=== PATIENT | female | born 1995 | race Caucasian/White ===

== ENCOUNTER 2018-07-31 22:52 | Outpatient (CLI) | payer OTHER ==
[2018-08-01 01:11] LABS: APPEARANCE, URINE HAZY (CLEAR); BACTERIA, URINE AUTO 1+ (NEGATIVE); BILIRUBIN, URINE AUTO NEGATIVE (NEGATIVE); BLOOD, URINE BLOOD NEGATIVE (NEGATIVE); COLOR, URINE YELLOW (YELLOW); GLUCOSE, URINE (UA) AUTO NEGATIVE (NEGATIVE); KETONE, URINE AUTO TRACE mg/dL (NEGATIVE); LEUKOCYTE ESTERASE, URINE AUTO 3+ (NEGATIVE); MUCUS, URINE SMALL (NEGATIVE); NITRITE, URINE AUTO NEGATIVE (NEGATIVE); PROTEIN, URINE AUTO NEGATIVE (NEGATIVE); RBC, URINE AUTO 2 /HPF (0-3); SPECIFIC GRAVITY URINE AUTO 1.004 (1.002-1.035); SQUAMOUS EPITHELIAL CELL UR AU 9 /HPF (0-6); TRANSITIONAL EPITHELIAL AUTO <1 /HPF; UROBILINOGEN, URINE AUTO 0.2 mg/dL (0.0-2.0); WBC, URINE AUTO 4 /HPF (0-3)
== END 2018-08-01 00:15 | disposition home or self-care (01) ==
LOC: M LDO 22:52
DX: Z04.3 Encounter for examination and observation following other accident (principal); V89.2XXD Person injured in unspecified motor-vehicle accident, traffic, subsequent encounter; O47.03 False labor before 37 completed weeks of gestation, third trimester; Z3A.32 32 weeks gestation of pregnancy
CPT/HCPCS: 59025

== ENCOUNTER 2018-09-21 03:02 | Inpatient (IN) | payer OTHER ==
[2018-09-21] MEDS: LR 1,000 ML IV ×2 (07:15→16:08)
[2018-09-21 07:29] LABS: HEMATOCRIT 34.3 % (36.0-47.0); HEMOGLOBIN 11.5 g/dl (12.0-15.5); MEAN CORPUSCULAR HEMOGLOBIN 30.7 pg (27.0-33.0); MEAN CORPUSCULAR HGB CONC 33.5 g/dl (32.0-36.5); MEAN CORPUSCULAR VOLUME 91.5 fl (80.0-96.0); PLATELET COUNT, AUTOMATED 274 10^3/uL (150-450); RED BLOOD COUNT 3.75 10^6/uL (4.00-5.40); RED CELL DISTRIBUTION WIDTH 13.5 % (11.5-14.5); WHITE BLOOD COUNT 11.8 10^3/uL (4.0-10.0)
[2018-09-21] MEDS: OXYTOCIN DRIP 30 UNITS in APPROPRIATE DILUENT 1 EA IV (08:33)
[2018-09-21] MEDS: LACTATED RINGER'S 1000 ML IV (14:36)
[2018-09-21] MEDS ORDERED: FENTANYL 2MCG/ML ROPIVACAINE 0.2% IN 0.9% NACL 200ML IVBAG As Ordered (15:01)
[2018-09-21] MEDS ORDERED: ePHEDrine SULFATE 25 MG/5 ML(5MG/ML) SYRINGE IV (16:30)
[2018-09-21] MEDS ORDERED: EPIDURAL COMMENT XX (16:30)
[2018-09-21] MEDS ORDERED: NALOXONE INJ 0.4 MG/1 ML VIAL (J2310) IV ×3 (16:30→23:30)
[2018-09-21] MEDS ORDERED: EPIDURAL/PCA KEYS XX (16:30)
[2018-09-21] MEDS ORDERED: LACTATED RINGER'S 1000 ML IV (16:30)
[2018-09-21] MEDS ORDERED: diphenhydrAMINE INJ 50MG/ML VIAL (J1200) IV (16:30)
[2018-09-21] MEDS ORDERED: ONDANSETRON 4MG/2ML VIAL (J2405) IV ×2 (16:30→23:30)
[2018-09-21] MEDS: FENTANYL/ROPIVACAINE/NACL BAG 200 ML EPIDURAL (16:30)
[2018-09-21] MEDS ORDERED: REFRIGERATOR IV KEYS XX (16:30)
[2018-09-21] MEDS: ACETAMINOPHEN 500 MG TAB PO (19:25)
[2018-09-21] MEDS: AMPICILLIN SOD/SULBACTAM SOD 3 GM in D5W MINI-BAG PLUS 100 ML IV (20:03)
[2018-09-21] MEDS ORDERED: MORPHINE PRES-FREE INJ 10 MG/10 ML VIAL (J2274) As Ordered (22:28)
[2018-09-21] MEDS ORDERED: OXYTOCIN INJ 10 UNITS/ML VIAL (J2590) As Ordered ×3 (22:30)
[2018-09-21] MEDS ORDERED: LIDOCAINE 2% W/EPIN INJ 20ML **PRES FREE As Ordered (22:34)
[2018-09-21] MEDS: BICITRA 30ML SOLN UDC PO (22:37)
[2018-09-21] MEDS: AZITHROMYCIN INJ 500 MG, VIAL MATE ADAPTER 1 EACH in D5W 250 ML IV (23:00)
[2018-09-21] MEDS ORDERED: METOCLOPRAMIDE INJ 10MG/2ML VIAL (J2765) IV (23:30)
[2018-09-21] MEDS ORDERED: NALBUPHINE HCL 10 MG/ML AMP (J2300) IV (23:30)
[2018-09-21 23:36] LABS: CORD GAS ABE A -6.7; CORD GAS HCO3 A 21.2 MEQ/L; CORD GAS O2 SAT A 31.9 %; CORD GAS PCO2 A 51.2 mmHg; CORD GAS PH A 7.235 UNITS; CORD GAS PO2 A 16.1 mmHg; CORD GAS SBC A 17.6 MEQ/L; CORD GAS TCO2 A 22.8 MEQ/L
[2018-09-21 23:41] LABS: CORD GAS ABE V -6.6; CORD GAS HCO3 V 20.5 MEQ/L; CORD GAS O2 SAT V 35.6 %; CORD GAS PCO2 V 46.1 mmHg; CORD GAS PH V 7.265 UNITS; CORD GAS PO2 V 16.5 mmHg; CORD GAS SBC V 17.8 MEQ/L; CORD GAS TCO2 V 21.9 MEQ/L
[2018-09-21] MEDS ORDERED: ONDANSETRON 4MG/2ML VIAL (J2405) As Ordered (23:43)
[2018-09-21] MEDS ORDERED: dexameTHASONE 4 MG/ML 1ML VIAL (J1100) As Ordered (23:43)
[2018-09-21] MEDS ORDERED: KETOROLAC 60 MG/2 ML VIAL (J1885) As Ordered (23:43)
[2018-09-22] MEDS: miSOPROStol 200 MCG TAB (S0191) PR (00:30)
[2018-09-22] MEDS: LR 1,000 ML IV ×2 (00:47→02:40)
[2018-09-22] MEDS ORDERED: RHOGAM 300 MCG (1500 IU) INJ (J2790) IM (01:00)
[2018-09-22] MEDS ORDERED: MEASLES,MUMPS,RUBELLA VACCINE INJ (MMR-II) (90707) SC (01:00)
[2018-09-22] MEDS ORDERED: fentaNYL 100 MCG/2 ML INJECTION (J3010) IV (01:00)
[2018-09-22] MEDS ORDERED: NALBUPHINE HCL 10 MG/ML AMP (J2300) IV (01:00)
[2018-09-22] MEDS: METHYLERGONOVINE MALEATE 0.2 MG/ML VIAL (J2210) IM (01:00)
[2018-09-22] MEDS ORDERED: MEPERIDINE INJ 25 MG/ML VIAL (J2175) IV (01:00)
[2018-09-22] MEDS ORDERED: ONDANSETRON 4MG/2ML VIAL (J2405) IV ×2 (01:00)
[2018-09-22] MEDS ORDERED: PERCOCET 5MG/325MG TAB PO ×2 (01:00)
[2018-09-22] MEDS ORDERED: HYDROMORPHONE HCL 0.5 MG/ 0.5 ML SYRINGE (J1170 PER 1) IV (01:00)
[2018-09-22] MEDS ORDERED: fentaNYL 100 MCG/2 ML INJECTION (J3010) As Ordered (01:02)
[2018-09-22] MEDS: PERCOCET 5MG/325MG TAB PO (02:50)
[2018-09-22] MEDS: AMPICILLIN SOD/SULBACTAM SOD 3 GM in D5W MINI-BAG PLUS 100 ML IV ×4 (03:00→21:53)
[2018-09-22] MEDS: CLINDAMYCIN 900 MG in APPROPRIATE DILUENT 1 EA IV (04:12)
[2018-09-22] MEDS: KETOROLAC 30 MG/ML VIAL (J1885) IV ×3 (06:15→19:04)
[2018-09-22] MEDS: DOCUSATE SODIUM 100 MG CAP PO ×2 (08:47→21:53)
[2018-09-22] MEDS: PRENATAL VITAMINS CHEWABLE TABLET PO (08:47)
[2018-09-23] MEDS: AMPICILLIN SOD/SULBACTAM SOD 3 GM in D5W MINI-BAG PLUS 100 ML IV (03:00)
[2018-09-23] MEDS: IBUPROFEN 800 MG TAB PO ×3 (03:00→18:01)
[2018-09-23 07:20] LABS: HEMATOCRIT 26.1 % (36.0-47.0); MEAN CORPUSCULAR HEMOGLOBIN 30.9 pg (27.0-33.0); MEAN CORPUSCULAR HGB CONC 33.3 g/dl (32.0-36.5); MEAN CORPUSCULAR VOLUME 92.6 fl (80.0-96.0); PLATELET COUNT, AUTOMATED 218 10^3/uL (150-450); RED BLOOD COUNT 2.82 10^6/uL (4.00-5.40); RED CELL DISTRIBUTION WIDTH 14.1 % (11.5-14.5); WHITE BLOOD COUNT 20.1 10^3/uL (4.0-10.0)
[2018-09-23 07:25] LABS: HEMOGLOBIN 8.7 g/dl (12.0-15.5)
[2018-09-23] MEDS: DOCUSATE SODIUM 100 MG CAP PO ×2 (08:32→22:04)
[2018-09-23] MEDS: PRENATAL VITAMINS CHEWABLE TABLET PO (08:32)
[2018-09-23] MEDS: PERCOCET 5MG/325MG TAB PO ×2 (12:51→19:28)
[2018-09-24] MEDS: IBUPROFEN 800 MG TAB PO ×2 (01:45→10:11)
[2018-09-24] MEDS: PERCOCET 5MG/325MG TAB PO ×2 (05:54→11:05)
[2018-09-24] MEDS: PRENATAL VITAMINS CHEWABLE TABLET PO (08:42)
[2018-09-24] MEDS: DOCUSATE SODIUM 100 MG CAP PO (08:42)
== END 2018-09-24 11:10 | disposition home or self-care (01) | DRG 771 ==
LOC: M LDO 03:02 → M OBS 09-22 02:39 → M LDI 04:55
PROVIDERS: Obstetrics & Gynecology
PROC: 10D00Z1 Extraction of Products of Conception, Low, Open Approach (ICD-10-PCS; principal; 2018-09-21 22:40)
DX: O76 Abnormality in fetal heart rate and rhythm complicating labor and delivery (principal); O41.1230 Chorioamnionitis, third trimester, not applicable or unspecified; Z37.0 Single live birth; Z3A.39 39 weeks gestation of pregnancy; O42.02 Full-term premature rupture of membranes, onset of labor within 24 hours of rupture

== ENCOUNTER 2018-12-02 17:09 | Emergency (ER) | payer OTHER ==
[~2018-12-02] VITALS: Ht 152.4 cm; Wt 67.4 kg
[~2018-12-02 17:09] MED LIST: IBUP-1114 PO; OXYC1TAB23 PO; PRENTAB9 PO
[2018-12-02] MEDS ORDERED: NS 1,000 ML IV ONE (17:45)
--- NOTE | 2018-12-02 18:02 | REP ---
Clinical: Syncope . Comparison: None . Findings: The ventricles, sulci, and cisterns are normal in position and appearance. [place]-white differentiation is maintained. No acute intracranial hemorrhage, mass/mass effect, pathology or trauma/injury. No evidence for acute infarction. No extra-axial fluid collection. Calvarium is intact. Paranasal sinuses and mastoid air cells are clear. Impression: Normal noncontrast head CT. No evidence for acute intracranial pathology or trauma/injury. Electronically Signed by Jose A Wells MD 12/02/2018 05:54 P
[2018-12-02 18:25] LABS: BASO % 0.2 % (0.0-1.0); EOS # 0.2 10^3/uL (0.0-0.50); HEMATOCRIT 39.9 % (36.0-47.0); HEMOGLOBIN 12.7 g/dl (12.0-15.5); LYMPH # 1.4 10^3/uL (1.5-6.5); LYMPH % 8.8 % (24.0-44.0); MEAN CORPUSCULAR HEMOGLOBIN 28.7 pg (27.0-33.0); MEAN CORPUSCULAR HGB CONC 31.8 g/dl (32.0-36.5); MEAN CORPUSCULAR VOLUME 90.3 fl (80.0-96.0); MONO # 1.1 10^3/uL (0.0-0.8); MONO % 6.9 % (0.0-5.0); NEUTROPHILS # 12.9 10^3/uL (1.8-7.7); NEUTROPHILS % 82.5 % (36.0-66.0); PLATELET COUNT, AUTOMATED 294 10^3/uL (150-450); RED BLOOD COUNT 4.42 10^6/uL (4.00-5.40); WHITE BLOOD COUNT 15.6 10^3/uL (4.0-10.0)
[2018-12-02 18:43] LABS: INR 1.21; PROTHROMBIN TIME 15.5 SECONDS (12.1-14.4)
[2018-12-02 18:59] LABS: BLOOD UREA NITROGEN 11 MG/DL (7-18); CARBON DIOXIDE LEVEL 27 MEQ/L (21-32); CHLORIDE LEVEL 104 MEQ/L (98-107); CK-MB VALUE MASS < 1.0 NG/ML (<3.6); CPK CREATINE PHOSPHOKINASE 72 U/L (26-192); CREATININE FOR GFR 0.84 MG/DL (0.55-1.30); GLOMERULAR FILTRATION RATE > 60.0 (>60); GLUCOSE, FASTING 88 MG/DL (70-100); MB/CK RELATIVE INDEX 1.39 (< OR =4); POTASSIUM SERUM 3.7 MEQ/L (3.5-5.1); SODIUM LEVEL 139 MEQ/L (136-145); TROPONIN I < 0.02 NG/ML (< 0.10)
[2018-12-02] MEDS ORDERED: PENI500T PO (19:09)
[2018-12-02] MEDS ORDERED: PENICILLIN V POTASSIUM 500 MG TAB PO ONE (19:15)
[2018-12-02 19:45] VITALS: BP 101/60
--- NOTE | 2018-12-03 07:25 | ECGEPIP ---
Stationary ECG Study [facility] - ED Test Date: 2018-12-02 Pat Name: LAINEY PEREZ Department: Room: - Gender: F Adult School Teacher: : 1995 Requested By: SIENA VILLALTA Order Number: [id number] Reading MD: Theresa Fatima Measurements Intervals [place] Rate: 87 P: 59 ND: 133 QRS: 39 QRSD: 92 T: 16 QT: 334 QTc: 403 Interpretive Statements SINUS RHYTHM NO PRIOR FOR COMPARISON Electronically Signed On 12-03-2018 7:24:53 EST by Theresa Fatima
== END 2018-12-02 19:57 | disposition home or self-care (01) ==
LOC: M ED 17:09
DX: R55 Syncope and collapse (principal); J02.0 Streptococcal pharyngitis

== ENCOUNTER 2018-12-19 17:02 | Emergency (ER) | payer OTHER ==
[~2018-12-19] VITALS: Ht 152.4 cm; Wt 65.9 kg
[~2018-12-19 17:02] MED LIST changes: +PENI500T PO
[2018-12-19] MEDS ORDERED: AUGM875T28 PO ×2 (19:44→19:45)
[2018-12-19] MEDS ORDERED: AUGMENTIN 875 MG TAB PO ONE (19:45)
[2018-12-19 20:10] VITALS: BP 109/64
== END 2018-12-19 20:13 | disposition home or self-care (01) ==
LOC: M ED 17:02
DX: J02.0 Streptococcal pharyngitis (principal)

== ENCOUNTER 2019-01-04 15:39 | Emergency (ER) | payer OTHER ==
[~2019-01-04] VITALS: Ht 152.4 cm; Wt 65.9 kg
[~2019-01-04 15:39] MED LIST changes: +AUGM875T28 PO
[2019-01-04 15:40] VITALS: BP 108/59
[2019-01-04] MEDS ORDERED: PROB250C PO (16:21)
[2019-01-04] MEDS ORDERED: CLEO300C2 PO (16:21)
== END 2019-01-04 16:44 | disposition home or self-care (01) ==
LOC: M ED 15:39
DX: J02.0 Streptococcal pharyngitis (principal)